=== PATIENT | female | born 2005 | race Hispanic/Latino ===

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

== ENCOUNTER 2024-04-06 05:34 | Inpatient (IN) | payer MEDICAID, OTHER, SELFPAY ==
[2024-04-06] MEDS ORDERED: Ondansetron PF 4 MG/2 ML Vial IVP PRN ×5 (07:19→23:41)
[2024-04-06] MEDS ORDERED: Misoprostol 200 MCG TAB PR PRN ×2 (07:19→23:41)
[2024-04-06] MEDS ORDERED: Carboprost 250 MCG/ML AMP IM PRN (07:19)
[2024-04-06] MEDS ORDERED: Acetaminophen 500 MG TAB PO PRN (07:19)
[2024-04-06] MEDS ORDERED: Tranexamic Acid 1,000 MG/10 ML VIAL IVP PRN (07:19)
[2024-04-06] MEDS ORDERED: fentaNYL 50 mcg/mL 1 mL Vial SLOW IVP PRN ×2 (07:19→10:39)
[2024-04-06] MEDS ORDERED: Docusate 100 MG CAP PO PRN (07:19)
[2024-04-06] MEDS ORDERED: Promethazine HCl 25 MG/ML VIAL IM PRN ×4 (07:19→23:41)
[2024-04-06] MEDS ORDERED: Zolpidem Tartrate 5 MG TAB PO PRN (07:19)
[2024-04-06] MEDS ORDERED: Lidocaine 1% (PF) 30 ML VIAL SC PRN (07:19)
[2024-04-06] MEDS ORDERED: Diphenoxylate HCl/Atropine Tablet PO PRN (07:19)
[2024-04-06] MEDS ORDERED: Penicillin G Potassium 5 MILL.UNITS in Sodium Chloride 0.9% 100 ML IVPB SCH (07:30)
[2024-04-06] MEDS ORDERED: Lactated Ringer's 1,000 ML IV SCH (07:30)
[2024-04-06] MEDS ORDERED: Oxytocin 30 units/NS 500 ML 500 ML IV SCH ×2 (07:30→23:41)
[2024-04-06 07:49] LABS: ALT (SGPT) 26 U/L (8-55); AST (SGOT) 40 U/L (5-30); Albumin 2.8 g/dL (3.5-5.0); Alkaline Phosphatase 425 U/L (40-100); Anion Gap 14 mmol/L (10-20); BUN (Urea Nitrogen) 8 mg/dL (8.4-21.0); Bilirubin, Total 0.6 mg/dL (0.2-1.2); Calc. Creatinine Clearance 0 mL/min (70-130); Calcium 8.4 mg/dL (7.8-10.44); Carbon Dioxide 17 mmol/L (22-29); Chloride 107 mmol/L (98-107); Estimated GFR 118; Globulin 3.9 g/dL (2.4-3.5); Glucose 107 mg/dL (70-105); Potassium 3.5 mmol/L (3.5-5.1); Protein, Total 6.7 g/dL (6.0-8.3); Sodium 134 mmol/L (136-145)
[2024-04-06] MEDS ORDERED: Bupivacaine PF 0.5% 30 ML VIAL ONE (08:00)
[2024-04-06] MEDS ORDERED: Lidocaine 2% MPF 10 ML AMP (For Epidural Use) ONE (08:00)
[2024-04-06] MEDS ORDERED: Bupivacaine/Epinephrine 0.25% 30 ML VIAL ONE (08:00)
[2024-04-06 08:03] LABS: Syphilis Antibody Nonreactive (Nonreactive); Syphilis Antibody Index 0.09 S/CO (<1.00 Non-Reactive)
[2024-04-06 08:04] LABS: HBsAg Index 0.14 S/CO (0-0.99); Hep B Surf Ag - L&D Non-Reactive S/CO (NonReactive)
[2024-04-06 08:06] VITALS: BMI 21.2
[2024-04-06 08:20] LABS: Hematocrit 34.5 % (34.9-44.5); Hemoglobin 11.8 g/dL (12.0-15.5); Mean Corpuscular HGB CONC 34.2 g/dL (32.0-36.0); Mean Corpuscular Hemoglobin 30.3 pg (27.0-33.0); Mean Corpuscular Volume 88.7 fL (81.6-98.3); Mean Platelet Volume 10.7 fL (7.4-10.4); Platelet Count 206 10x3/uL (150-450); RBC Distribution Width 13.3 % (11.5-14.5); Red Blood Cell (RBC) Count 3.89 10x6/uL (3.90-5.03); White Blood Cell (WBC) Count 18.2 10x3/uL (3.5-10.5)
[2024-04-06] MEDS: Magnesium Sulfate 20 gm/500 ml 20 GM/500 ML BAG ONE ×2 (08:43→16:53)
[2024-04-06 08:47] LABS: Influenza A by NAA Not Detected (NotDetected); Influenza B by NAA Not Detected (NotDetected); SARS-CoV-2 NAA Rapid Test Not Detected (NotDetected)
[2024-04-06] MEDS: hydrALAZINE 20 MG/ML VIAL SLOW IVP PRN (08:48)
[2024-04-06] MEDS: fentaNYL/Ropivacaine Epidural 100 ML ONE (09:12)
[2024-04-06] MEDS ORDERED: Acetaminophen 325 MG TAB PO PRN (09:19)
[2024-04-06] MEDS ORDERED: diphenhydrAMINE 50 MG/ML VIAL IVP PRN ×2 (09:19→10:39)
[2024-04-06] MEDS ORDERED: Naloxone HCl 0.4 mg/ml Vial IVP PRN ×4 (09:19→10:39)
[2024-04-06] MEDS ORDERED: Moisturizing Cream (Eucerin) 113 GM JAR TOP PRN (09:19)
[2024-04-06] MEDS ORDERED: ePHEDrine Sulfate 50 MG/10 ML VIAL SLOW IVP PRN (09:19)
[2024-04-06] MEDS ORDERED: Lactated Ringer's 500 ML IV PRN (09:19)
[2024-04-06] MEDS ORDERED: fentaNYL 2 mcg/Ropivacaine 0.2% Epidural 100 ML CADD EPIDURAL SCH (09:30)
[2024-04-06] MEDS ORDERED: Communication Order-Pharmacy FS SCH ×2 (09:30→10:45)
[2024-04-06] MEDS ORDERED: Naloxone HCl 0.4 mg/ml Vial IV PRN (10:39)
[2024-04-06] MEDS ORDERED: Morphine 4 MG/ML VIAL SLOW IVP PRN (10:39)
[2024-04-06] MEDS ORDERED: Ketorolac Tromethamine 30 MG (1 mL) VIAL IVP SCH (10:45)
[2024-04-06] MEDS ORDERED: Penicillin G 2.5 MILL.units 2.5 MILL.UNITS in Premix 1 BAG IVPB SCH (12:00)
[2024-04-06 13:22] LABS: Analyzer IN Cardio CS NICU; RapidComm Collect By OR nurse
[2024-04-06 13:24] LABS: Analyzer IN Cardio CS NICU; RapidComm Collect By OR NURSE; pH (Cord, venous) 7.289 (7.250-7.350)
[2024-04-06] MEDS: Ketorolac Tromethamine 30 MG (1 mL) VIAL IVP PRN (14:10)
[2024-04-06] MEDS: Moisturizing Cream (Eucerin) 113 GM JAR TOP PRN (14:45)
[2024-04-06] MEDS: Meperidine HCl/PF 25 MG (1 mL) VIAL SLOW IVP PRN (14:46)
[2024-04-06] MEDS ORDERED: diphenhydrAMINE 25 MG CAP PO PRN (23:41)
[2024-04-06] MEDS ORDERED: Meperidine HCl/PF 25 MG (1 mL) VIAL IM PRN (23:41)
[2024-04-06] MEDS ORDERED: Bisacodyl 10 MG SUPP PR PRN (23:41)
[2024-04-06] MEDS ORDERED: hydrALAZINE 20 MG/ML VIAL SLOW IVP PRN (23:41)
[2024-04-06] MEDS: Azithromycin 500 MG VIAL ONE (23:44)
[2024-04-06] MEDS: fentaNYL 50 mcg/mL 1 mL Vial ONE (23:44)
[2024-04-06] MEDS: Ondansetron PF 4 MG/2 ML Vial ONE (23:45)
[2024-04-06] MEDS: Oxytocin 10 UNITS/ML VIAL ONE (23:45)
[2024-04-06] MEDS: PHENYLEPHRINE-NS 100 MCG/ML 10 ML SYRINGE ONE (23:45)
[2024-04-06] MEDS: Erythromycin Base 0.5% Oint 1 GM TUBE ONE (23:45)
[2024-04-06] MEDS: Morphine PF 10 MG/10 ML VIAL ONE (23:45)
[2024-04-06] MEDS: Sodium Chloride 0.9% 100 ML ONE (23:45)
[2024-04-06] MEDS: Dexamethasone 10 MG/ML VIAL ONE (23:45)
[2024-04-06] MEDS: CEFAZOLIN 2 GM VIAL ONE (23:45)
[2024-04-06] MEDS: Phytonadione Neonatal 1 MG/0.5 ML AMP ONE (23:45)
[2024-04-07] MEDS: HYDROcodone/Acetaminophen 5/325 mg Tablet PO PRN ×2 (00:02→16:18)
[2024-04-07 00:32] LABS: HIV (1/2) Antibody/Antigen Non-Reactive (NonReactive); HIV 1/2 INDEX 0.09 S/CO (<1.00)
[2024-04-07] MEDS: Magnesium Sulfate 20 gm/500 ml 20 GM/500 ML BAG ONE (03:16)
[2024-04-07 04:56] LABS: Hematocrit 27.1 % (34.9-44.5); Hemoglobin 9.6 g/dL (12.0-15.5); Mean Corpuscular HGB CONC 35.4 g/dL (32.0-36.0); Mean Corpuscular Hemoglobin 31.5 pg (27.0-33.0); Mean Corpuscular Volume 88.9 fL (81.6-98.3); Platelet Count 178 10x3/uL (150-450); RBC Distribution Width 13.5 % (11.5-14.5); Red Blood Cell (RBC) Count 3.05 10x6/uL (3.90-5.03); White Blood Cell (WBC) Count 26.2 10x3/uL (3.5-10.5)
[2024-04-07] MEDS ORDERED: Docusate 100 MG CAP PO PRN (07:00)
[2024-04-07] MEDS: Docusate 100 MG CAP PO SCH (08:49)
[2024-04-07] MEDS: Ferrous Sulfate 325 MG TAB PO SCH (08:50)
[2024-04-07] MEDS: Prenatal Vitamin 1 TAB PO SCH (08:50)
[2024-04-07] MEDS: Ibuprofen 800 MG TAB PO SCH (13:00)
[2024-04-07] MEDS: Simethicone Chewable 80 MG TAB PO PRN (20:39)
[2024-04-08] MEDS: Boostrix 0.5 ML (Tdap) VIAL (>/=7 yrs of age) IM ONE (07:23)
[2024-04-08] MEDS: Methylergonovine 0.2 MG/ML VIAL ONE (13:45)
[2024-04-08] MEDS: cloNIDine 0.1 MG TAB PO PRN (23:20)
[2024-04-09 11:01] VITALS: TEMP 97.8
[2024-04-09 16:05] VITALS: BP 140/67
== END 2024-04-09 17:10 | disposition home or self-care (01) | DRG 788 ==
LOC: CSHERS 05:34 → CSHLD/OP 05:53 → CSHLD 07:26 → CSHPP 04-07 13:20
PROVIDERS: ADMIT Family Medicine; ATTEND Family Medicine
PROC: 10D00Z1 Extraction of Products of Conception, Low, Open Approach (ICD-10-PCS; principal; 2024-04-06)
DX: O76 Abnormality in fetal heart rate and rhythm complicating labor and delivery (principal); O36.5930 Maternal care for other known or suspected poor fetal growth, third trimester, not applicable or unspecified; O14.14 Severe pre-eclampsia complicating childbirth; Z3A.38 38 weeks gestation of pregnancy; Z37.0 Single live birth; Z79.82 Long term (current) use of aspirin
CPT/HCPCS: 36415; 51702; 80053; 82805; 85027; 86780; 86850; 86900; 86901; 87070; 87205; 87340; 87389; 88307; 93005; 93010; 99285; C1889; J0360; J0665; J1100; J1885; J2175; J2274; J2405; J2590; J3475